=== PATIENT | female | born 1975 | race Caucasian/White ===

== ENCOUNTER 2018-02-11 18:41 | Inpatient (IN) | payer OTHER ==
[2018-02-11] MEDS ORDERED: ONDANSETRON 4 MG INJ IV (20:00)
[2018-02-11] MEDS: INSULIN ASPART [NOVOLOG] 3 ML PEN SC (21:00)
[2018-02-11] MEDS: CIPROFLOXACIN 400MG/D5W 200 ML IVPB (21:44)
[2018-02-11] MEDS: FAMOTIDINE 20 MG INJ IV (21:45)
[2018-02-11] MEDS: SOD CHLORIDE 0.9% 1,000 ML IV (21:45)
[2018-02-11] MEDS ORDERED: GLUCOSE GEL 15 GRAM TUBE BUCCAL (22:00)
[2018-02-11] MEDS ORDERED: DEXTROSE 50% 50 ML SYRINGE IV ×2 (22:00)
[2018-02-11] MEDS ORDERED: GLUCAGON 1 MG INJ IM (22:00)
[2018-02-11] MEDS ORDERED: GLUCOSE GEL 15 GRAM TUBE PO ×2 (22:00)
[2018-02-11] MEDS: metroNIDAZOLE 500 MG/NS (PMX) 100 ML IVPB (23:02)
[2018-02-12] MEDS: ACCU-CHEK XX (01:44)
[2018-02-12] MEDS: ACETAMINOPHEN 325 MG TAB PO ×3 (03:01→21:56)
[2018-02-12] MEDS: SOD CHLORIDE 0.9% 1,000 ML IV ×2 (04:00→08:22)
[2018-02-12] MEDS: metroNIDAZOLE 500 MG/NS (PMX) 100 ML IVPB ×2 (05:08→14:43)
[2018-02-12] MEDS: INSULIN ASPART [NOVOLOG] 3 ML PEN SC ×4 (08:00→21:00)
[2018-02-12] MEDS: FAMOTIDINE 20 MG INJ IV ×2 (08:22→21:56)
[2018-02-12] MEDS: CIPROFLOXACIN 400MG/D5W 200 ML IVPB (08:22)
[2018-02-12 15:41] LABS: ADD MAN DIFF? NO
[2018-02-12 15:44] LABS: WHITE BLOOD COUNT 13.4 10^3/ul (4.8-10.8)
[2018-02-12 15:44] LABS: ABNORMAL IP MESSAGE 1; BASOPHILS % 0.1 % (0.0-2.0); HEMOGLOBIN 10.8 g/dl (12.0-16.0); LYMPHOCYTES # 0.5 10^3/ul (0.8-2.9); LYMPHOCYTES % 3.4 % (15.0-51.0); MEAN CORPUSCULAR HEMOGLOBIN 28.9 pg (29.0-33.0); MEAN CORPUSCULAR HGB CONC 32.7 g/dl (32.0-37.0); MEAN CORPUSCULAR VOLUME 88.2 fl (82.0-101.0); MONOCYTE # 1.2 10^3/ul (0.3-0.9); MONOCYTES % 9.2 % (0.0-11.0); NEUTROPHIL # 11.6 10^3/ul (1.6-7.5); NEUTROPHILS % 86.8 % (39.0-77.0); PLATELET COUNT 133 10^3/UL (140-415); RED BLOOD COUNT 3.74 10^6/ul (4.20-5.40); RED CELL DISTRIBUTION WIDTH 13.5 % (11.5-14.5)
[2018-02-12 16:18] LABS: ALANINE AMINOTRANSFERASE 20 IU/L (13-69); ALBUMIN 3.1 g/dl (3.3-4.9); ALBUMIN/GLOBULIN RATIO 1.24; ALKALINE PHOSPHATASE 45 IU/L (42-121); ANION GAP 13 (8-16); ASPARTATE AMINO TRANSFERASE 13 IU/L (15-46); BILIRUBIN,INDIRECT 0.6 mg/dl (0-1.1); BILIRUBIN,TOTAL 0.6 mg/dl (0.2-1.3); BLOOD UREA NITROGEN 7 mg/dl (7-20); CALCIUM 8.1 mg/dl (8.4-10.2); CARBON DIOXIDE 21 mmol/L (21-31); CHLORIDE 110 mmol/L (97-110); CREATININE 0.57 mg/dl (0.44-1.00); GLUCOSE 178 mg/dl (70-220); POTASSIUM 3.6 mmol/L (3.5-5.1); SODIUM 140 mmol/L (135-144); TOTAL PROTEIN 5.6 g/dl (6.1-8.1)
[2018-02-12 16:24] LABS: INR 1.58; PROTIME 19.2 Sec (11.9-14.9); PT RATIO 1.5
[2018-02-12 16:27] LABS: POSITIVE DIFF @See below
[2018-02-12] MEDS: SOD CHLORIDE 0.9% 500 ML IV (16:38)
[2018-02-12] MEDS: DEXTROSE 5%-0.9% NACL 1,000 ML IV (17:48)
[2018-02-12] MEDS: PIPER-TAZO 3.375 GM IV (PMX) 100 ML IVPB (18:53)
[2018-02-13] MEDS: ACCU-CHEK XX (02:00)
[2018-02-13] MEDS: DEXTROSE 5%-0.9% NACL 1,000 ML IV ×2 (03:30→13:30)
[2018-02-13] MEDS: PIPER-TAZO 3.375 GM IV (PMX) 100 ML IVPB ×3 (05:40→21:20)
[2018-02-13 06:14] LABS: ADD MAN DIFF? NO
[2018-02-13 06:38] LABS: BASOPHILS % 0.1 % (0.0-2.0); EOSINOPHILS % 0.1 % (0.0-7.0); HEMATOCRIT 34.1 % (37.0-47.0); LYMPHOCYTES # 0.7 10^3/ul (0.8-2.9); LYMPHOCYTES % 5.3 % (15.0-51.0); MEAN CORPUSCULAR HEMOGLOBIN 28.8 pg (29.0-33.0); MEAN CORPUSCULAR HGB CONC 32.3 g/dl (32.0-37.0); MEAN CORPUSCULAR VOLUME 89.3 fl (82.0-101.0); MEAN PLATELET VOLUME 11.6 fl (7.4-10.4); MONOCYTE # 1.2 10^3/ul (0.3-0.9); MONOCYTES % 8.5 % (0.0-11.0); NEUTROPHILS % 85.4 % (39.0-77.0); PLATELET COUNT 149 10^3/UL (140-415); RED BLOOD COUNT 3.82 10^6/ul (4.20-5.40); RED CELL DISTRIBUTION WIDTH 13.8 % (11.5-14.5)
[2018-02-13 06:51] LABS: ALANINE AMINOTRANSFERASE 22 IU/L (13-69); ALBUMIN 2.9 g/dl (3.3-4.9); ALBUMIN/GLOBULIN RATIO 1.11; ALKALINE PHOSPHATASE 45 IU/L (42-121); ANION GAP 11 (8-16); ASPARTATE AMINO TRANSFERASE 14 IU/L (15-46); BILIRUBIN,INDIRECT 0.6 mg/dl (0-1.1); BILIRUBIN,TOTAL 0.6 mg/dl (0.2-1.3); BLOOD UREA NITROGEN 5 mg/dl (7-20); CALCIUM 8.1 mg/dl (8.4-10.2); CARBON DIOXIDE 27 mmol/L (21-31); CHLORIDE 109 mmol/L (97-110); CREATININE 0.58 mg/dl (0.44-1.00); GLUCOSE 160 mg/dl (70-220); POTASSIUM 3.8 mmol/L (3.5-5.1); SODIUM 143 mmol/L (135-144); TOTAL PROTEIN 5.5 g/dl (6.1-8.1)
[2018-02-13] MEDS ORDERED: BUPIVACAINE 0.25% (MPF) 30 ML INJ (07:04)
[2018-02-13] MEDS ORDERED: LIDOCAINE 1%/EPI 30 ML INJ (07:05)
[2018-02-13 07:07] LABS: LIPASE 13 U/L (23-300)
[2018-02-13] MEDS ORDERED: ONDANSETRON 4 MG INJ (07:27)
[2018-02-13] MEDS ORDERED: MIDAZOLAM 1 MG/ML 2 ML INJ (07:27)
[2018-02-13] MEDS ORDERED: ROCURONIUM 50 MG INJ (07:27)
[2018-02-13] MEDS ORDERED: PROPOFOL 20 ML (07:27)
[2018-02-13] MEDS ORDERED: NEOSTIGMINE 3 MG/3 ML SYRINGE (07:27)
[2018-02-13] MEDS ORDERED: GLYCOPYRROLATE 0.4 MG INJ (07:27)
[2018-02-13] MEDS ORDERED: FENTAnyl 50 MCG/ML VIAL (07:27)
[2018-02-13] MEDS ORDERED: DEXAMETHASONE 4 MG/ML 1 ML INJ (07:27)
[2018-02-13] MEDS ORDERED: CEFAZOLIN 1 GM INJ (07:27)
[2018-02-13] MEDS ORDERED: MEPERIDINE 25 MG INJ IV (07:30)
[2018-02-13] MEDS ORDERED: ONDANSETRON 4 MG INJ IV (07:30)
[2018-02-13] MEDS ORDERED: TRIMETHOBENZAMIDE 100 MG/ML VIAL IM (07:30)
[2018-02-13] MEDS ORDERED: OXYCODONE/ACETAMINOPHEN (5/325) TAB PO ×2 (07:30)
[2018-02-13] MEDS ORDERED: IPRATROPIUM (NEB) 0.5 MG/2.5 ML AMP HHN (07:30)
[2018-02-13] MEDS ORDERED: MIDAZOLAM 1 MG/ML 2 ML INJ IV (07:30)
[2018-02-13] MEDS ORDERED: EPHEDrine SULFATE 50 MG/5 ML SYG IV (07:30)
[2018-02-13] MEDS ORDERED: hydrALAzine 20 MG INJ IV (07:30)
[2018-02-13] MEDS ORDERED: LABETALOL HCL 20MG INJ IV (07:30)
[2018-02-13] MEDS ORDERED: FENTAnyl 50 MCG/ML VIAL IV ×3 (07:30)
[2018-02-13] MEDS ORDERED: ALBUTEROL 0.083% (NEB) 2.5 MG/3 ML AMP HHN (07:30)
[2018-02-13] MEDS ORDERED: HYDROmorphONE 1 MG/5 ML IV SYRINGE IV ×2 (07:30)
[2018-02-13] MEDS ORDERED: ROPIVACAINE 0.5 % 30 ML VIAL (07:31)
[2018-02-13] MEDS: INSULIN ASPART [NOVOLOG] 3 ML PEN SC ×4 (08:00→21:00)
[2018-02-13 08:12] LABS: HEMOGLOBIN A1C 5.7 % (0-5.9)
[2018-02-13] MEDS ORDERED: KETOROLAC 30 MG INJ (08:57)
[2018-02-13] MEDS ORDERED: SUGAMMADEX SODIUM 200 MG/2 ML VIAL IV (08:58)
[2018-02-13] MEDS: HYDROmorphONE 1 MG/5 ML IV SYRINGE IV (10:01)
[2018-02-13] MEDS: DIPHENHYDRAMINE 50 MG INJ IV (10:08)
[2018-02-13] MEDS: FAMOTIDINE 20 MG INJ IV ×2 (12:47→21:21)
[2018-02-13] MEDS: ACETAMINOPHEN 325 MG TAB PO (15:39)
[2018-02-14] MEDS: ACCU-CHEK XX (01:32)
[2018-02-14] MEDS: PIPER-TAZO 3.375 GM IV (PMX) 100 ML IVPB ×2 (05:21→13:42)
[2018-02-14] MEDS: ACETAMINOPHEN 325 MG TAB PO (05:57)
[2018-02-14 06:22] LABS: ADD MAN DIFF? NO
[2018-02-14 06:28] LABS: WHITE BLOOD COUNT 9.5 10^3/ul (4.8-10.8)
[2018-02-14 06:28] LABS: HEMOGLOBIN 9.6 g/dl (12.0-16.0); LYMPHOCYTES # 0.6 10^3/ul (0.8-2.9); LYMPHOCYTES % 6.7 % (15.0-51.0); MEAN CORPUSCULAR HEMOGLOBIN 28.7 pg (29.0-33.0); MEAN CORPUSCULAR VOLUME 89.8 fl (82.0-101.0); MEAN PLATELET VOLUME 12.6 fl (7.4-10.4); MONOCYTE # 0.6 10^3/ul (0.3-0.9); MONOCYTES % 6.4 % (0.0-11.0); NEUTROPHIL # 8.3 10^3/ul (1.6-7.5); NEUTROPHILS % 86.7 % (39.0-77.0); PLATELET COUNT 160 10^3/UL (140-415); RED BLOOD COUNT 3.34 10^6/ul (4.20-5.40); RED CELL DISTRIBUTION WIDTH 14.1 % (11.5-14.5)
[2018-02-14 07:13] LABS: ANION GAP 12 (8-16); BLOOD UREA NITROGEN 9 mg/dl (7-20); CALCIUM 8.2 mg/dl (8.4-10.2); CARBON DIOXIDE 25 mmol/L (21-31); CHLORIDE 114 mmol/L (97-110); CREATININE 0.62 mg/dl (0.44-1.00); GLUCOSE 123 mg/dl (70-220); POTASSIUM 4.2 mmol/L (3.5-5.1); SODIUM 147 mmol/L (135-144)
[2018-02-14] MEDS: INSULIN ASPART [NOVOLOG] 3 ML PEN SC ×2 (08:00→12:13)
[2018-02-14] MEDS: FAMOTIDINE 20 MG INJ IV (08:17)
== END 2018-02-14 17:00 | disposition home or self-care (01) | DRG 418 ==
LOC: 2NE 18:41
PROVIDERS: Internal Medicine Nephrology
PROC: 0FT44ZZ Resection of Gallbladder, Percutaneous Endoscopic Approach (ICD-10-PCS; principal; 2018-02-13 07:30)
DX: K80.00 Calculus of gallbladder with acute cholecystitis without obstruction (principal); E87.0 Hyperosmolality and hypernatremia; E11.9 Type 2 diabetes mellitus without complications; E66.9 Obesity, unspecified; F32.9 Major depressive disorder, single episode, unspecified; K52.9 Noninfective gastroenteritis and colitis, unspecified; D64.9 Anemia, unspecified; Z68.30 Body mass index [BMI] 30.0-30.9, adult
CPT/HCPCS: 78226; 80048; 80053; 82652; 82962; 83036; 83690; 85025; 85610; 86850; 86900; 86901; 87040; 87086; 88304